=== PATIENT | female | born 1945 | race Caucasian/White ===

== ENCOUNTER 2017-07-27 22:50 | Emergency (ER) | payer MEDICARE, BC ==
[2017-07-28] MEDS ORDERED: Albuterol/Ipratropium 3.0-0.5 MG/3 ML Neb Soln NEB ONE (00:36)
--- NOTE | 2017-07-28 01:24 | EDM.PDOC ---
ED HPI GENERAL MEDICAL PROBLEM - General Chief Complaint: Respiratory Problem Stated Complaint: SOB Time Seen by Provider: 07/28/17 00:26 Source of Information: Reports: Patient History Limitations: Reports: No Limitations - History of Present Illness INITIAL COMMENTS - FREE TEXT/NARRATIVE: This patient comes in complaining of shortness of breath. She's a little bit short of breath all the time but is worse today seems it started last night. She had to sleep sitting up if she lays down she immediately becomes short of breath. She denies any pedal edema. She is a former smoker. No history of any kind of heart disease. She has an albuterol inhaler. She denies any fever. Her cough is pretty frequent at times severe and is nonproductive - Related Data Allergies Allergy/AdvReac Type Severity Reaction Status Date / Time No Known Allergies Allergy Verified 07/27/17 23:53 Home Meds: Home Meds Atenolol 50 mg PO DAILY 07/27/17 [History] Levothyroxine Sodium [Synthroid] 150 mcg PO DAILY 07/27/17 [History] Losartan [Cozaar] 25 mg PO DAILY 07/27/17 [History] Simvastatin 40 mg PO DAILY 07/27/17 [History] glipiZIDE [Glucotrol] 10 mg PO BIDMEALS 07/27/17 [History] metFORMIN [Glucophage] 500 mg PO BIDMEALS 07/27/17 [History] Past Medical History Cardiovascular History: Reports: High Cholesterol, Hypertension Respiratory History: Reports: Asthma Endocrine/Metabolic History: Reports: Diabetes, Type II - Infectious Disease History Infectious Disease History: Reports: Chicken Pox, Measles, Mumps - Past Surgical History Endocrine Surgical History: Reports: Thyroidectomy Social & Family History - Tobacco Use Smoking Status *Q: Former Smoker Years of Tobacco use: 50 Used Tobacco, but Quit: Yes Month Tobacco Last Used: 12 years ago - Caffeine Use Caffeine Use: Reports: Coffee, Tea - Recreational Drug Use Recreational Drug Use: No ED ROS GENERAL - Review of Systems Review Of Systems: ROS reveals no pertinent complaints other than HPI. ED EXAM, GENERAL - Physical Exam Exam: See Below Exam Limited By: No Limitations General Appearance: Alert, No Apparent Distress, Obese Eye Exam: Bilateral Eye: Normal Inspection Ear Exam: Bilateral Ear: TM normal Nose: Normal Inspection Throat/Mouth: Normal Oropharynx Head: Atraumatic Neck: Normal Inspection Respiratory/Chest: Wheezing (Just a few scattered wheezes but good air movement) Cardiovascular: Normal Peripheral Pulses, Regular Rate, Rhythm Extremities: No Pedal Edema Neurological: Alert, Oriented Psychiatric: Normal Affect Course - Vital Signs Last Recorded V/S: Last Vital Signs Temp 36.8 C 07/27/17 23:42 Pulse 102 H 07/27/17 23:42 Resp 28 H 07/27/17 23:42 BP 217/103 H 07/27/17 23:42 Pulse Ox 96 07/27/17 23:53 - Orders/Labs/Meds Orders: Active Orders 24 hr Category Date Time Status EKG Documentation Completion [RC] ASDIRECTED Care 07/28/17 00:36 Active RT Aerosol Therapy [RC] ASDIRECTED Care 07/28/17 00:36 Active Chest 2V [CR] Urgent Exams 07/28/17 00:35 Taken EKG 12 Lead [EK] Urgent Ther 07/28/17 00:35 Ordered Labs: Laboratory Tests 07/28/17 07/28/17 Range/Units 00:43 00:43 WBC 7.4 (4.5-11.0) K/uL RBC 4.25 (3.30-5.50) M/uL Hgb 12.8 (12.0-15.0) g/dL Hct 39.5 (36.0-48.0) % MCV 93 (80-98) fL MCH 30 (27-31) pg MCHC 32 (32-36) % Plt Count 249 (150-400) K/uL Neut % (Auto) 73 H (36-66) % Lymph % (Auto) 15 L (24-44) % [place] % (Auto) 11 H (2-6) % Eos % (Auto) 1 L (2-4) % Baso % (Auto) 0 (0-1) % Sodium 136 L (140-148) mmol/L Potassium 4.1 (3.6-5.2) mmol/L Chloride 96 L (100-108) mmol/L Carbon Dioxide 31 (21-32) mmol/L Anion Gap 13.1 (5.0-14.0) mmol/L BUN 18 (7-18) mg/dL Creatinine 1.5 H (0.6-1.0) mg/dL Est Cr Clr Drug Dosing 28.84 mL/min Estimated GFR (MDRD) 34 L (>60) Glucose 266 H (74-106) mg/dL Calcium 9.3 (8.5-10.1) mg/dL Total Bilirubin 0.6 (0.2-1.0) mg/dL AST 19 (15-37) U/L ALT 19 (12-78) U/L Alkaline Phosphatase 68 (46-116) U/L Troponin I < 0.017 (0.000-0.056) ng/mL NT-Pro-B Natriuret Pep 191 H (5-125) pg/mL Total Protein 7.5 (6.4-8.2) g/dL Albumin 3.4 (3.4-5.0) g/dL Globulin 4.1 H (2.3-3.5) g/dL Albumin/Globulin Ratio 0.8 L (1.2-2.2) Meds: Medications Discontinued Medications Generic Name Dose Route Start Last Admin Trade Name Freq PRN Reason Stop Dose Admin Albuterol/Ipratropium 3 ml 07/28/17 00:36 07/28/17 00:47 Duoneb 3.0-0.5 Mg/3 Ml NEB 07/28/17 00:37 3 ml ONETIME ONE Administration - Radiology Interpretation Free Text/Narrative:: Normal heart size normal lung is normal bony and soft tissue - Re-Assessments/Exams Free Text/Narrative Re-Assessment/Exam: 07/28/17 01:54 This patient received a DuoNeb nebulizer treatment she said that helped her quite a bit. An EKG on this lady showed a sinus rhythm at 83 bpm there is probably right atrial enlargement and borderline right axis deviation I don't see any ST depression Departure - Departure Time of Disposition: 01:55 Disposition: Home, Self-Care 01 Condition: Fair Clinical Impression: Asthmatic bronchitis - Discharge Information Referrals: Matthew Damian MD [Primary Care Provider] - Forms: ED Department Discharge Additional Instructions: Take prednisone 40 mg daily for 5 days. This will relieve inflammation. Continue using the albuterol inhaler. Use the guaifenesin with codeine cough medication as directed to help control cough. This can cause sedation and dependency if abused. Take the antibiotic azithromycin take 2 tablets tonight and then 1 tablet daily until finished - My Orders Last 24 Hours: My Active Orders 07/28/17 00:35 Chest 2V [CR] Urgent EKG 12 Lead [EK] Urgent 07/28/17 00:36 EKG Documentation Completion [RC] ASDIRECTED RT Aerosol Therapy [RC] ASDIRECTED - Assessment/Plan Last 24 Hours: My Active Orders 07/28/17 00:35 Chest 2V [CR] Urgent EKG 12 Lead [EK] Urgent 07/28/17 00:36 EKG Documentation Completion [RC] ASDIRECTED RT Aerosol Therapy [RC] ASDIRECTED
== END 2017-07-28 02:07 | disposition home or self-care (01) ==
LOC: JP.ED 22:50
DX: J45.909 Unspecified asthma, uncomplicated (principal); I10 Essential (primary) hypertension; E78.00 Pure hypercholesterolemia, unspecified; E11.9 Type 2 diabetes mellitus without complications; Z87.891 Personal history of nicotine dependence; Z79.84 Long term (current) use of oral hypoglycemic drugs; Z79.899 Other long term (current) drug therapy
CPT/HCPCS: 36415; 71046; 80053; 83880; 84484; 85025; 93005; 94640; 99284; 99285; J7620; 93010